=== PATIENT | female | born 1950 | race Caucasian/White ===

== ENCOUNTER → 2016-09-11 | Outpatient (CLI) | payer OTHER | END | disposition home or self-care (01) | LOC: LABWHC1 08:16 | PROVIDERS: ATTEND Psychiatry & Neurology Neurology | DX: G40.909 Epilepsy, unspecified, not intractable, without status epilepticus (principal) | CPT/HCPCS: 36415; 80185 ==

== ENCOUNTER → 2016-12-20 | Outpatient (CLI) | payer MEDICARE, OTHER ==
--- NOTE | 2016-12-21 16:50 | BD ---
EXAMINATION TYPE: MG DEXA axial skeleton. DATE OF EXAM: 12/20/2016 3:57 PM COMPARISON: NONE CLINICAL HISTORY: 66-year-old female screening for osteoporosis Height: 5 FT 2 1/4 IN Weight: 182 FRAX RISK QUESTIONS: Alcohol (3 or more units per day): NO Family History (Parent hip fracture): YES Glucocorticoids (More than 3mos): NO (Ex: prednisone, prednisolone, methylprednisolone, dexamethasone, and hydrocortisone). History of Fracture in Adulthood: YES Secondary Osteoporosis: 1. Type 1 Diabetes: NO 2. Hyperthyroidism: NO 3. Menopause before 45: NO 4. Malnutrition: NO 5. Chronic liver disease: NO Rheumatoid Arthritis: NO Current Tobacco Use: NO RISK FACTORS HISTORY OF: History of Wrist Fracture: RT WRIST ? When: 2006? Family History of Osteoporosis: YES Active: YES Postmenopausal woman: PART HYST AGE 33 MEDICATIONS: Additional Medications: LEVOTHYROXINE, LIPITOR, EPILEPTIC MEDS, VITAMINS, H2O PILL, Additional History: EXAM MEASUREMENTS: Bone mineral densitometry was performed using the [employer] System. Bone mineral density as measured about the Lumbar spine is: ----- L1-L4(G/cm2): 1.247 T Score Values are as follows: ----- L2: -0.3 ----- L3: 1.1 ----- L4: 1.8 ----- L1-L4: 0.6 PREV NOT DONE HERE Bone mineral density about the R hip (g/cm2): 0.896 Bone mineral density about the L hip (g/cm2): 0.849 T Score values are as follows: -----R Neck: -1.0 -----L Neck: -1.4 -----R Total: -0.2 -----L Total: -0.5 PREV NOT DONE HERE IMPRESSION: Osteopenia as indicated by T score values within the left hip. There is slightly increased risk of fracture and the patient may be considered for treatment. Re-Screen 2-5 years. NOTE: T-SCORE=SD OF THE YOUNG ADULT MEAN.
--- NOTE | 2016-12-22 08:29 | MM ---
Reason for exam: screening (asymptomatic). Last mammogram was performed 1 year and 3 months ago. History: Patient is postmenopausal. Physical Findings: A clinical breast exam by your physician is recommended on an annual basis and results should be correlated with mammographic findings. MG Screening Mammo w CAD Bilateral CC and MLO view(s) were taken. Prior study comparison: September 23, 2015, bilateral MG 3d screening mammo w/cad. July 22, 2013, bilateral digital screening mammo w/CAD. There are scattered fibroglandular densities. No significant changes when compared with prior studies. ASSESSMENT: Negative, BI-RAD 1 RECOMMENDATION: Routine screening mammogram of both breasts in 1 year.
== END | disposition home or self-care (01) ==
LOC: RADMAMWWP 15:12
PROVIDERS: ATTEND Family Medicine
DX: Z12.31 Encounter for screening mammogram for malignant neoplasm of breast (principal); M85.852 Other specified disorders of bone density and structure, left thigh
CPT/HCPCS: 77080; G0202

== ENCOUNTER → 2017-03-07 | Outpatient (CLI) | payer MEDICARE, OTHER | END | disposition home or self-care (01) | LOC: LABWHC1 09:15 | PROVIDERS: ATTEND Psychiatry & Neurology Neurology | DX: G40.909 Epilepsy, unspecified, not intractable, without status epilepticus (principal) | CPT/HCPCS: 36415; 80177 ==

== ENCOUNTER → 2017-03-20 | Outpatient (CLI) | payer MEDICARE, OTHER ==
[2017-03-20 10:39] LABS: Non-African American GFR(MDRD) 60 (>60 ml/min/1.73 sqM)
--- NOTE | 2017-03-20 13:27 | MR ---
EXAMINATION TYPE: MR lumbar spine wo/w con DATE OF EXAM: 03/20/2017 11:29 AM COMPARISON: NONE HISTORY: Abnormal gait CONTRAST: The patient was injected with 17 mL intravenous MultiHance gadolinium contrast. Multiplanar, MultiSpin echo imaging of the lumbar spine was performed. There is a transitional segme nt with partial lumbarization of S1 and rudimentary S1-S2 disc. L1-L2: Normal disc appearance without desiccation. No herniation, protrusion or disc bulging. No ca nal stenosis is present. Foramina are patent bilaterally. L2-L3: Normal disc appearance without desiccation. No herniation, protrusion or disc bulging. No ca nal stenosis is present. Foramina are patent bilaterally. L3-L4: There is borderline disc desiccation. No herniation, protrusion or disc bulging. No canal destiney nosis is present. Foramina are patent bilaterally. L4-L5: Mild disc desiccation noted. There is minimal left posterior disc bulge. Hypertrophy of the li gament flavum and facet joint arthropathy contribute to borderline central stenosis. Mild right-sided foraminal encroachment. L5-S1: There is evidence of moderate disc desiccation with posterior central disc bulge and annular t ear. Grade 1 anterolisthesis L5 on S1 of 1 mm. S1 hemangioma. No central stenosis disc herniation justice ntified. Mild right-sided foraminal encroachment. Lumbar segments are intact. No paraspinal masses are identified. Conus medullaris has a normal appe arance. IMPRESSION: 1. Degenerative disc disease greatest at L4-5 where there is borderline central stenosis identified.
== END | disposition home or self-care (01) ==
LOC: RADMRIMAIN 10:13
PROVIDERS: ATTEND Psychiatry & Neurology Neurology
DX: M48.06 Spinal stenosis, lumbar region (principal); M51.36 Other intervertebral disc degeneration, lumbar region; R26.9 Unspecified abnormalities of gait and mobility; Z13.89 Encounter for screening for other disorder
CPT/HCPCS: 82565; 72158; A9577

== ENCOUNTER → 2017-12-27 | Outpatient (CLI) | payer MEDICARE, OTHER ==
--- NOTE | 2017-12-27 15:31 | US ---
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 had prior rt renal biopsy--benign EXAM MEASUREMENTS: Right Kidney: 11.1 x 6.0 x 5.1 cm Left Kidney: 11.9 x 6.4 x 5.8 cm Right Kidney: some cortical lobulation, otherwise wnl Left Kidney: wnl Bladder: wnl Bilateral Jets seen: no There is no evidence for hydronephrosis at this point in time. No nephrolithiasis is seen. No juan s are identified. The urinary bladder is anechoic. IMPRESSION: No hydronephrosis or nephrolithiasis. No focal renal masses are appreciated.
== END | disposition home or self-care (01) ==
LOC: RADUSWWP 15:07
PROVIDERS: ATTEND Family Medicine
DX: Q61.8 Other cystic kidney diseases (principal)
CPT/HCPCS: 76770

== ENCOUNTER → 2018-02-01 | Outpatient (CLI) | payer MEDICARE, OTHER ==
--- NOTE | 2018-02-01 09:33 | CT ---
EXAMINATION TYPE: CT chest wo con DATE OF EXAM: 02/01/2018 COMPARISON: CT chest February 19, 2014 HISTORY: Shortness of breath, cough, lung nodule CT DLP: 408.4 mGycm. Automated Exposure Control for Dose Reduction was Utilized. TECHNIQUE: CT scan of the thorax is performed without IV contrast. FINDINGS: LUNGS: There is stable 4 mm nodule lateral inferior right upper lobe axial image 20. There is stable 8 x 6 mm nodule anterior left upper lobe axial image 18. There are 2 adjacent 5 and 4 mm nodules in t he lingula axial image 23 and 24 respectively redemonstrated which are stable. There is irregular 6 x 4 mm nodule anterior medial right midlung axial image 24 which is stable. There is stable 3 to 4 mm nodule left lower lobe superiorly and posteriorly axial image 25. There is stable or minimally more p rominent 5 mm nodule inferior and medial to this axial image 32. No new nodules are clearly evident. No suspicious consolidation or groundglass opacity is seen. No pleural effusion or pneumothorax is no jesse. MEDIASTINUM: Lack of IV contrast is noted to limit evaluation for mediastinal and especially hilar ad enopathy. There are no definitive greater than 1 cm noncalcified hilar or mediastinal lymph nodes. Th ere are some calcified subcentimeter right hilar and subcarinal lymph nodes. No cardiomegaly or per icardial effusion is seen. OTHER: There is S-shaped scoliosis with moderate multilevel spurring in the thoracic spine redemonstr ated. IMPRESSION: Scattered small nodules are stable presumed postinflammatory. No new nodules or masses ar e identified.
== END ==
LOC: RADCTMAIN 08:45
PROVIDERS: ATTEND Internal Medicine Pulmonary Disease
DX: R91.8 Other nonspecific abnormal finding of lung field (principal); R06.02 Shortness of breath; R05 Cough
CPT/HCPCS: 71250

== ENCOUNTER → 2018-02-12 | Outpatient (CLI) | payer MEDICARE, OTHER | END | disposition home or self-care (01) | LOC: LABWHC1 07:23 | PROVIDERS: ATTEND Psychiatry & Neurology Neurology | DX: G40.909 Epilepsy, unspecified, not intractable, without status epilepticus (principal) | CPT/HCPCS: 36415; 80177 ==

== ENCOUNTER → 2018-02-12 | Outpatient (CLI) | payer MEDICARE, OTHER ==
--- NOTE | 2018-02-13 11:16 | MM ---
Reason for exam: screening (asymptomatic). Last mammogram was performed 1 year and 2 months ago. History: Patient is postmenopausal. Physical Findings: A clinical breast exam by your physician is recommended on an annual basis and results should be correlated with mammographic findings. MG Screening Mammo w CAD Bilateral CC and MLO view(s) were taken. Prior study comparison: December 20, 2016, bilateral MG screening mammo w CAD. September 23, 2015, bilateral MG 3d screening mammo w/cad. There are scattered fibroglandular densities. There is no discrete abnormality. ASSESSMENT: Negative, BI-RAD 1 RECOMMENDATION: Routine screening mammogram of both breasts in 1 year.
== END | disposition home or self-care (01) ==
LOC: RADMAMWWP 08:49
PROVIDERS: ATTEND Family Medicine
DX: Z12.31 Encounter for screening mammogram for malignant neoplasm of breast (principal)
CPT/HCPCS: 77067

== ENCOUNTER 2018-07-12 08:51 | Day surgery (SDC) | payer MEDICARE, OTHER ==
[2018-07-10 13:00] VITALS: BMI 33.1
[~2018-07-12 08:51] MED LIST: LACTATED RINGERS 1,000 ML IV SCH; PROPOFOL 10 MG/ML 20 ML VIAL IV ONE
[2018-07-12 09:25] VITALS: RESP 18; TEMP 97.3
[2018-07-12] MEDS ORDERED: LIDOCAINE 1% 20 ML VIAL (10MG/ML) FOR IV START INTRADERMA ONE (09:29)
--- NOTE | 2018-07-12 10:20 | P.PCN ---
Date of Procedure: 07/12/18 Procedure(s) Performed: BRIEF HISTORY: Patient is a 67-year-old pleasant, white female scheduled for an elective colonoscopy as a part of evaluation of change in bowel habits. PROCEDURE PERFORMED: Colonoscopy with snare polypectomy. PREOPERATIVE DIAGNOSIS: Change in bowel habits. IV sedation per Anesthesia. PROCEDURE: After informed consent was obtained, the patient, was brought into the endoscopy unit. IV sedation was administered by Anesthesia under continuous monitoring. Digital rectal examination was normal. Initially the Olympus CF- 160 flexible video colonoscope was then inserted in the rectum, gradually advanced into the cecum without any difficulty. Careful examination was performed as the scope was gradually being withdrawn. Ileocecal valve and the appendiceal orifice were visualized and appeared normal. Prep was excellent. Mucosa of the cecum, ascending colon, transverse colon, descending colon, appeared normal. In the sigmoid colon at 35 cm from the anal was there was a 1.5 cm pedunculated polyp removed by snare polypectomy. Rest of the sigmoid colon, and rectum appeared normal. Retroflexion was performed in the rectum and small internal hemorrhoids were seen. The patient tolerated the procedure well. IMPRESSION: 1.5 cm pedunculated sigmoid colon polyp status post polypectomy Small internal hemorrhoids RECOMMENDATIONS: Findings of this examination were discussed with the patient as well as her family. She was advised to follow with the biopsy results. If the biopsy shows adenoma, she can have a repeat colonoscopy in 3 years.
[2018-07-12 11:07] VITALS: BP 129/81; PULSE 62
== END 2018-07-12 11:21 | disposition home or self-care (01) ==
LOC: ORWHC2ENDO 08:51
PROVIDERS: ATTEND Internal Medicine Gastroenterology
DX: D12.5 Benign neoplasm of sigmoid colon (principal); K64.8 Other hemorrhoids; I10 Essential (primary) hypertension; E78.5 Hyperlipidemia, unspecified; R56.9 Unspecified convulsions; Z79.890 Hormone replacement therapy; Z88.5 Allergy status to narcotic agent; Z79.899 Other long term (current) drug therapy
CPT/HCPCS: 88305; 45385; J2704

== ENCOUNTER → 2018-11-21 | Outpatient (CLI) | payer MEDICARE, OTHER ==
--- NOTE | 2018-11-21 13:06 | CT ---
EXAMINATION TYPE: CT sinus wo con DATE OF EXAM: 11/21/2018 COMPARISON: None HISTORY: Sinus problems x months. CT DLP: 624.[address] of the paranasal sinuses was performed in the axial and coronal planes. Bone and soft tissue settings are submitted. The paranasal sinuses demonstrate normal aeration and development. Mild mucosal thickening of the maxillary sinuses. Medial maxillary antrectomy noted bilaterally. Part ial ethmoidectomy noted. The osteal meatal units are patent bilaterally. The nasal septum is midline. No bony destructive changes are seen within the field of view. IMPRESSION: Postoperative changes of medial maxillary antrectomy and partial ethmoidectomy. Mild mucosal thickeni ng of the maxillary sinuses are noted. No air-fluid level seen.
== END | disposition home or self-care (01) ==
LOC: RADCTMAIN 12:38
PROVIDERS: ATTEND Otolaryngology
DX: J32.9 Chronic sinusitis, unspecified (principal); Z98.890 Other specified postprocedural states
CPT/HCPCS: 70486

== ENCOUNTER → 2019-01-06 | Outpatient (CLI) | payer MEDICARE, OTHER | LOC: LABWHC1 09:57 | PROVIDERS: ATTEND Psychiatry & Neurology Neurology | DX: G40.909 Epilepsy, unspecified, not intractable, without status epilepticus (principal) | CPT/HCPCS: 36415; 80177 ==

== ENCOUNTER → 2019-02-20 | Outpatient (CLI) | payer MEDICARE, OTHER ==
--- NOTE | 2019-02-21 10:52 | MM ---
Reason for exam: screening (asymptomatic). Last mammogram was performed 1 year ago. History: Patient is postmenopausal. Physical Findings: A clinical breast exam by your physician is recommended on an annual basis and results should be correlated with mammographic findings. MG 3D Screening Mammo W/Cad Bilateral CC and MLO view(s) were taken. Prior study comparison: February 12, 2018, bilateral MG screening mammo w CAD. December 20, 2016, bilateral MG screening mammo w CAD. The breast tissue is almost entirely fat. No significant changes when compared with prior studies. ASSESSMENT: Benign, BI-RAD 2 RECOMMENDATION: Routine screening mammogram of both breasts in 1 year.
== END | disposition home or self-care (01) ==
LOC: RADMAMWWP 13:33
PROVIDERS: ATTEND Family Medicine
DX: Z12.31 Encounter for screening mammogram for malignant neoplasm of breast (principal)
CPT/HCPCS: 77063; 77067

== ENCOUNTER → 2019-03-28 | Outpatient (CLI) | payer MEDICARE, OTHER ==
--- NOTE | 2019-03-28 16:35 | CT ---
EXAMINATION TYPE: CT chest wo con DATE OF EXAM: 03/28/2019 COMPARISON: 02/01/2018 and 02/19/2014 HISTORY: Dyspnea, Multiple lung nodules. CT DLP: 390.[address] of the chest was performed with lung and mediastinal window settings submitted. The la ck of contrast limits evaluation of the vascular, mediastinal and parenchymal structures including th e upper abdomen. LUNGS: The lungs are clear and free of infiltrate. No atelectasis. There are stable pulmonary nodules dating back to 02/19/2014. No new nodules seen. No pleural effusion. No CT evidence of interstitial lung disease. MEDIASTINUM/JESSICA: Thoracic aorta is of normal caliber with limited evaluation given lack of contrast . The heart is not enlarged. No evidence for mediastinal mass. No lymph nodes greater than 1cm. UPPER ABDOMEN: Stable splenic cyst. OTHER: No significant other abnormality. IMPRESSION: 1. There are stable pulmonary nodules dating back to 02/19/2014. No new nodules seen. No further foll ow-up is necessary.
== END | disposition home or self-care (01) ==
LOC: RADCTMAIN 12:21
PROVIDERS: ATTEND Internal Medicine Pulmonary Disease
DX: R91.8 Other nonspecific abnormal finding of lung field (principal)
CPT/HCPCS: 71250

== ENCOUNTER → 2019-10-13 | Outpatient (CLI) | payer MEDICARE, OTHER | END | disposition home or self-care (01) | LOC: LABWHC1 09:05 | PROVIDERS: ATTEND Psychiatry & Neurology Neurology | DX: G40.909 Epilepsy, unspecified, not intractable, without status epilepticus (principal) | CPT/HCPCS: 36415; 80177 ==

== ENCOUNTER → 2020-05-05 | Outpatient (CLI) | payer MEDICARE, OTHER ==
--- NOTE | 2020-05-06 11:08 | MM ---
Reason for exam: screening (asymptomatic). Last mammogram was performed 1 year and 2 months ago. History: Patient is postmenopausal. Physical Findings: A clinical breast exam by your physician is recommended on an annual basis and results should be correlated with mammographic findings. MG 3D Screening Mammo W/Cad Bilateral CC and MLO view(s) were taken. Prior study comparison: February 20, 2019, bilateral MG 3d screening mammo w/cad. February 12, 2018, bilateral MG screening mammo w CAD. There are scattered fibroglandular densities. There is no discrete abnormality. No significant changes when compared with prior studies. ASSESSMENT: Negative, BI-RAD 1 RECOMMENDATION: Routine screening mammogram of both breasts in 1 year.
== END | disposition home or self-care (01) ==
LOC: RADMAMWWP 12:05
PROVIDERS: ATTEND Family Medicine
DX: Z12.31 Encounter for screening mammogram for malignant neoplasm of breast (principal)
CPT/HCPCS: 77063; 77067

== ENCOUNTER 2020-10-11 14:18 | Emergency (ER) | payer MEDICARE, OTHER ==
[2020-10-11 14:23] VITALS: BP 152/84; PULSE 95; RESP 18; TEMP 98.3
[2020-10-11] MEDS ORDERED: TOPICAL SKIN ADHESIVE 1 EACH AMP TOPICAL ONE (15:44)
--- NOTE | 2020-10-11 15:50 | ED ---
Wound/Laceration HPI - General Chief Complaint: Wound/Laceration Stated Complaint: thumb lac Time Seen by Provider: 10/11/20 15:35 Source: patient Mode of arrival: ambulatory Limitations: no limitations - History of Present Illness Initial Comments: Patient is a 69-year-old female presenting to the emergency Department with complaints of a laceration to her right thumb. Patient states she was slicing vegetables yesterday and accidentally cut her thumb. This happened yesterday morning apparently 9 AM. Patient states today she was shopping and noticed that it opened back up and it was bleeding so she came into the ER for evaluation. She states her tetanus is up-to-date. She is not on blood thinners. Bleeding is controlled with a Band-Aid at this time. She has no further complaints. - Related Data Home Medications Medication Instructions Recorded Confirmed Atorvastatin Calcium [Lipitor] 80 mg PO HS 04/03/14 07/12/18 Levothyroxine Sodium [Synthroid] 25 mcg PO QAM 04/03/14 07/12/18 hydroCHLOROthiazide [Hydrodiuril] 25 mg PO DAILY 04/03/14 07/12/18 Alive-Multi Vit 1 each PO DAILY 07/10/18 07/12/18 Calcium Citrate/Vitamin D3 1 each PO HS 07/10/18 07/12/18 [Calcitrate + Vit D Caplet] Cholecalciferol [Vitamin D3] 1,000 unit PO HS 07/10/18 07/12/18 Docusate [Colace] 100 mg PO BID 07/10/18 07/12/18 Loratadine [Claritin] 10 mg PO DAILY 07/10/18 07/12/18 Magnesium Oxide [Fernández] 500 mg PO DAILY 07/10/18 07/12/18 Triamcinolone 0.1% Ointment 1 applic TOPICAL DAILY 07/10/18 07/12/18 [Kenalog 0.1% Ointment] Previous Rx's Medication Instructions Recorded levETIRAcetam [Keppra] 750 mg PO Q12HR #60 tab 09/21/16 Allergies Allergy/AdvReac Type Severity Reaction Status Date / Time tuberculin, purified protein Allergy Swelling Verified 10/11/20 14:22 deriva morphine AdvReac Nausea & Verified 10/11/20 14:22 Vomiting Review of Systems ROS Statement: Those systems with pertinent positive or pertinent negative responses have been documented in the HPI. ROS Other: All systems not noted in ROS Statement are negative. Past Medical History Past Medical History: Hyperlipidemia, Hypertension, Seizure Disorder, Thyroid Disorder Additional Past Medical History / Comment(s): IBS, last seizure 2 YEARS AGO, hypothyroid, 2000 Bae's palsey.-RESOLVED History of Any Multi-Drug Resistant Organisms: None Reported Past Surgical History: Adenoidectomy, Bladder Surgery, Hysterectomy, Tonsillectomy Additional Past Surgical History / Comment(s): R renal tumor benign biopsy, colonoscopy with polyp removed, bladder suspension, sinus surgery SX FOR SLEEP APNEA Past Anesthesia/Blood Transfusion Reactions: No Reported Reaction Past Psychological History: No Psychological Hx Reported Smoking Status: Never smoker Past Alcohol Use History: None Reported Past Drug Use History: None Reported - Past Family History Father History Unknown: Yes Family Medical History: No Reported History Mother Additional Family Medical History / Comment(s): Mother had heart disease. Sister(s) Family Medical History: Cancer Additional Family Medical History / Comment(s): LUNG General Exam - General Exam Comments Initial Comments: GENERAL: Patient is well-developed and well-nourished. Patient is nontoxic and in no acute distress. HEAD: Atraumatic, normocephalic. EYES: Pupils equal round and reactive to light, extraocular movements intact, sclera anicteric, conjunctiva are normal. Eyelids were unremarkable. ENT: Nares patent, oropharynx clear without exudates. Moist mucous membranes. NECK: Normal range of motion, supple without lymphadenopathy or JVD. LUNGS: Unlabored respirations. Breath sounds clear to auscultation bilaterally and equal. No wheezes rales or rhonchi. HEART: Regular rate and rhythm without murmurs, rubs or gallops. ABDOMEN: Soft, nontender, normoactive bowel sounds. No guarding, no rebound. No masses appreciated. : Deferred MUSCULOSKELETAL: Normal extremities with adequate strength and normal range of motion, no pitting or edema. No clubbing or cyanosis. NEUROLOGICAL: Patient is alert and oriented x 3. Normal speech, normal gait. PSYCH: Normal mood, normal affect. SKIN: Warm, Dry, normal turgor, no rashes. Patient has a superficial laceration to the lateral aspect of the distal right thumb, approximately 0.5 cm in length. No active bleeding. No nail involvement. Limitations: no limitations Course Vital Signs 10/11/20 14:19 Temperature 98.3 F Pulse Rate 95 Respiratory 18 Rate Blood Pressure 152/84 O2 Sat by Pulse 97 Oximetry Procedures - Laceration Laceration #1 Consent Obtained: verbal consent Indication: laceration Site: hand (Distal right thumb) Size (cm): 0 (0.5cm) Description: linear Depth: simple, single layer Additional Comments: Topical skin adhesive was applied over the wound as well as Steri-Strips. Medical Decision Making - Medical Decision Making Patient is a 69-year-old female here with a 0.5 cm laceration to the distal thumb, that happened yesterday at approximately 9 AM. No active bleeding, her tetanus is up-to-date. She states that it opened up while she was shopping today. The wound was cleaned, topical skin adhesive was applied as well as Steri-Strips. He will keep hand clean and dry. Skin adhesive will slowly come off after 5-6 days. Patient is stable for discharge. Patient is in agreement with this plan of care. Return parameters were discussed with the patient and they verbalized understanding. Case discussed with Dr. Guidry. Disposition Clinical Impression: Laceration of right thumb Disposition: HOME SELF-CARE Condition: Stable Instructions (If sedation given, give patient instructions): Skin Adhesive Care (ED) Additional Instructions: Please return to the Emergency Department if symptoms worsen or any other concerns. Keep hand clean and dry. Do not soak the thumb. Skin adhesive will slowly come off after 4-5 days. Is patient prescribed a controlled substance at d/c from ED?: No Referrals: Saundra Swan MD [Primary Care Provider] - 1-2 days
== END 2020-10-11 17:05 | disposition home or self-care (01) ==
LOC: EC 14:18
DX: S61.011A Laceration without foreign body of right thumb without damage to nail, initial encounter (principal); E78.5 Hyperlipidemia, unspecified; E03.9 Hypothyroidism, unspecified; I10 Essential (primary) hypertension; G40.909 Epilepsy, unspecified, not intractable, without status epilepticus; Z79.890 Hormone replacement therapy; Z79.899 Other long term (current) drug therapy; Z88.5 Allergy status to narcotic agent; Z88.8 Allergy status to other drugs, medicaments and biological substances; Z90.89 Acquired absence of other organs; Z90.710 Acquired absence of both cervix and uterus; W26.9XXA Contact with unspecified sharp object(s), initial encounter; Y93.G3 Activity, cooking and baking
CPT/HCPCS: 12001; 99282

== ENCOUNTER → 2020-11-08 | Outpatient (CLI) | payer MEDICARE, OTHER | END | disposition home or self-care (01) | LOC: LABWHC1 11:29 | PROVIDERS: ATTEND Psychiatry & Neurology Neurology | DX: G40.909 Epilepsy, unspecified, not intractable, without status epilepticus (principal) | CPT/HCPCS: 36415; 80177 ==

== ENCOUNTER → 2021-07-06 | Outpatient (CLI) | payer MEDICARE, OTHER ==
--- NOTE | 2021-07-08 11:36 | MM ---
Reason for exam: screening (asymptomatic). Last mammogram was performed 1 year and 2 months ago. History: Patient is postmenopausal. Physical Findings: A clinical breast exam by your physician is recommended on an annual basis and results should be correlated with mammographic findings. MG 3D Screening Mammo W/Cad Bilateral CC and MLO view(s) were taken. Prior study comparison: May 05, 2020, bilateral MG 3d screening mammo w/cad. February 20, 2019, bilateral MG 3d screening mammo w/cad. There are scattered fibroglandular densities. There is no discrete abnormality. ASSESSMENT: Negative, BI-RAD 1 RECOMMENDATION: Routine screening mammogram of both breasts in 1 year.
== END | disposition home or self-care (01) ==
LOC: RADMAMWWP 10:04
PROVIDERS: ATTEND Family Medicine
DX: Z12.31 Encounter for screening mammogram for malignant neoplasm of breast (principal); Z78.0 Asymptomatic menopausal state
CPT/HCPCS: 77063; 77067

== ENCOUNTER → 2021-07-22 | Outpatient (CLI) | payer MEDICARE, OTHER | END | disposition home or self-care (01) | LOC: LABWHC1 10:15 | PROVIDERS: ATTEND Psychiatry & Neurology Neurology | DX: G40.909 Epilepsy, unspecified, not intractable, without status epilepticus (principal) | CPT/HCPCS: 36415; 80177 ==

== ENCOUNTER → 2022-07-11 | Outpatient (CLI) | payer MEDICARE, OTHER ==
--- NOTE | 2022-07-11 14:21 | BD ---
EXAMINATION TYPE: Axial Bone Density DATE OF EXAM: 07/11/2022 COMPARISON: 2016 CLINICAL HISTORY: 71 years year old Female. ICD-10 CODE: M85.88 disorder of bone Height: 5'2 Weight: 176 FRAX RISK QUESTIONS: Family History (Parent hip fracture): y History of Fracture in Adulthood: y Secondary Osteoporosis: RISK FACTORS HISTORY OF: History of Wrist Fracture: not sure When: 2006 Family History of Osteoporosis: y Postmenopausal woman: y MEDICATIONS: Thyroid Medications: Which medication: Levothyroxine How Lon years Additional Medications: epilepsy, blood pressure, cholesterol, Additional History: EXAM MEASUREMENTS: Bone mineral densitometry was performed using the [employer]. Bone mineral density as measured about the Lumbar spine is: ----- L1-L4(G/cm2): 1.318 T Score Values are as follows: ----- L1: 0.2 ----- L2: 0.4 ----- L3: 2.2 ----- L4: 1.4 ----- L1-L4:1.2 Bone mineral density has: Increased 3.8% since study of: 12/20/2016 Bone mineral density about the R hip (g/cm2): 0.939 Bone mineral density about the L hip (g/cm2): 0.898 T Score values are as follows: -----R Neck: -0.7 -----L Neck: -1.1 -----R Total: -0.1 -----L Total: -0.2 Bone mineral density has: Increased 2.4% since study of: 12/20/2016 FRAX%s: The graph provided illustrates a 13.5% chance for a major osteoporotic fx and a1.4% chance f or the hips probability for fx in 10 years time. IMPRESSION: Osteopenia (T Score between -2.5 and -1). There is slightly increased risk of fracture and the patient may be considered for treatment. Re-Screen 2-5 years. NOTE: T-SCORE=SD OF THE YOUNG ADULT MEAN.
--- NOTE | 2022-07-12 08:32 | MM ---
Reason for Exam: Screening (asymptomatic). Last screening mammogram was performed 12 month(s) ago. Patient History: Menarche at age 12. First Full-Term at age 21. Right ovary removed at age 33. Hysterectomy at age 33. Postmenopausal. Risk Values: Tyra 5 year model risk: 1.7%. NCI Lifetime model risk: 5.0%. Prior Study Comparison: 02/20/2019 Bilateral Screening Mammogram, [facility]. 05/05/2020 Bilateral Screening Mammogram, [facility]. 07/06/2021 Bilateral Screening Mammogram, [facility]. Tissue Density: There are scattered fibroglandular densities. Findings: Analyzed By CAD. There is no suspicious new group of microcalcifications or new suspicious mass in either breast. Overall Assessment: Negative, BI-RAD 1 Management: Screening Mammogram of both breasts in 1 year. A clinical breast exam by your physician is recommended on an annual basis and results should be correlated with mammographic findings. Electronically signed and approved by: Delfin Ziegler M.D.
== END | disposition home or self-care (01) ==
LOC: RADMAMWWP 13:08
PROVIDERS: ATTEND Family Medicine
DX: Z12.31 Encounter for screening mammogram for malignant neoplasm of breast (principal); Z13.820 Encounter for screening for osteoporosis; M85.872 Other specified disorders of bone density and structure, left ankle and foot
CPT/HCPCS: 77063; 77067; 77080

== ENCOUNTER → 2023-07-12 | Outpatient (CLI) | payer MEDICARE, OTHER ==
--- NOTE | 2023-07-15 18:27 | MM ---
Reason for Exam: Screening (asymptomatic). Last screening mammogram was performed 12 month(s) ago. Patient History: Menarche at age 12. First Full-Term at age 21. Right ovary removed at age 33. Hysterectomy at age 33. Postmenopausal. Risk Values: Tyra 5 year model risk: 1.7%. NCI Lifetime model risk: 4.7%. Prior Study Comparison: 05/05/2020 Bilateral Screening Mammogram, [facility]. 07/06/2021 Bilateral Screening Mammogram, [facility]. 07/11/2022 Bilateral MG 3D screening mammo w/cad, [facility]. Tissue Density: There are scattered fibroglandular densities. Findings: Analyzed By CAD. Chronic nodularity in the left breast. There is no suspicious group of microcalcifications or new suspicious mass in either breast. Overall Assessment: Benign, BI-RAD 2 Management: Screening Mammogram of both breasts in 1 year. . Patient should continue monthly self-breast exams. A clinical breast exam by your physician is recommended on an annual basis. This exam should not preclude additional follow-up of suspicious palpable abnormalities. Note on Tyra scores and lifetime risk: 1. A Tyra score greater than 3% is considered moderate risk. If this is the case, consider specialist referral to assess eligibility for a risk reducing agent. 2. If overall lifetime risk for the development of breast cancer is 20% or higher, the patient may qualify for future screening with alternating mammogram and breast MRI. Electronically signed and approved by: Elton Thakur M.D. Radiologist
== END | disposition home or self-care (01) ==
LOC: RADMAMWWP 09:50
PROVIDERS: ATTEND Family Medicine
DX: Z12.31 Encounter for screening mammogram for malignant neoplasm of breast (principal); Z78.0 Asymptomatic menopausal state
CPT/HCPCS: 77063; 77067

== ENCOUNTER → 2024-06-10 | Outpatient (CLI) | payer MEDICARE, OTHER | END | disposition home or self-care (01) | LOC: LABWHC1 10:38 | PROVIDERS: ATTEND Psychiatry & Neurology Neurology | DX: G40.909 Epilepsy, unspecified, not intractable, without status epilepticus (principal) | CPT/HCPCS: 36415; 80177 ==

== ENCOUNTER 2024-07-08 14:43 | Emergency (ER) | payer MEDICARE, OTHER ==
[2024-07-08 14:51] LABS: Glucose,Whole Blood 119 mg/dL (70-110)
--- NOTE | 2024-07-08 15:13 | ED ---
General Adult HPI - General Chief complaint: Altered Mental Status Stated complaint: AMS Time Seen by Provider: 07/08/24 14:44 Source: patient, RN/MD, EMS, RN notes reviewed Mode of arrival: EMS Limitations: altered mental status - History of Present Illness Initial comments: Patient is a 73-year-old female present to the emergency department with concern for seizure. Patient has known seizure disorder. Patient had a seizure and did go to [facility]. Patient was still found to be postictal and transferred here. Patient reportedly did have a 4 second seizure in route by EMS. Patient is postictal at this time and does not provide much history. Patient has no complaints - Related Data Home Medications Medication Instructions Recorded Confirmed Atorvastatin Calcium [Lipitor] 80 mg PO HS 04/03/14 11/08/21 Levothyroxine Sodium [Synthroid] 25 mcg PO QAM 04/03/14 11/08/21 hydroCHLOROthiazide [Hydrodiuril] 25 mg PO DAILY 04/03/14 11/08/21 Alive-Multi Vit 1 each PO DAILY 07/10/18 11/08/21 Calcium Citrate/Vitamin D3 1 each PO HS 07/10/18 11/08/21 [Calcitrate + Vit D Caplet] Cholecalciferol [Vitamin D3] 1,000 unit PO HS 07/10/18 11/08/21 Docusate [Colace] 100 mg PO BID 07/10/18 11/08/21 Loratadine [Claritin] 10 mg PO DAILY 07/10/18 11/08/21 Magnesium Oxide [Fernández] 500 mg PO DAILY 07/10/18 11/08/21 Triamcinolone 0.1% Ointment 1 applic TOPICAL DAILY PRN 07/10/18 11/08/21 [Kenalog 0.1% Ointment] Apple Cider Vinegar Tab 2 tab PO HS 11/03/21 11/08/21 Aspirin [Freeborn Aspirin EC] 81 mg PO DAILY 11/03/21 11/08/21 Empagliflozin [Jardiance] 25 mg PO QAM 11/03/21 11/08/21 Famotidine [Pepcid] 40 mg PO HS 11/03/21 11/08/21 Fluticasone Nasal [place] [Flonase 1 spray EA NOSTRIL BID 11/03/21 11/08/21 Nasal [place]] Losartan Potassium 25 mg PO QAM 11/03/21 11/08/21 Losartan Potassium [Cozaar] 50 mg PO HS 11/03/21 11/08/21 Glucosamine/Chondr Voss A Sod [Osteo 1 each PO DAILY 11/04/21 11/08/21 Bi-Flex Caplet] Previous Rx's Medication Instructions Recorded levETIRAcetam [Keppra] 750 mg PO Q12HR #60 tab 09/21/16 Allergies Allergy/AdvReac Type Severity Reaction Status Date / Time adhesive tape Allergy red rash Verified 11/08/21 08:08 tuberculin, purified protein Allergy Swelling Verified 11/08/21 08:08 deriva morphine AdvReac Nausea & Verified 11/08/21 08:08 Vomiting Review of Systems ROS Statement: Those systems with pertinent positive or pertinent negative responses have been documented in the HPI. ROS Other: All systems not noted in ROS Statement are negative. Limitations: ROS unobtainable due to patients medical condition Past Medical History Past Medical History: Hyperlipidemia, Hypertension, Seizure Disorder, Thyroid Disorder Additional Past Medical History / Comment(s): IBS, last seizure 2 YEARS AGO, hypothyroid, 2000 Bae's palsey.-RESOLVED History of Any Multi-Drug Resistant Organisms: None Reported Past Surgical History: Adenoidectomy, Bladder Surgery, Hysterectomy, Tonsillectomy Additional Past Surgical History / Comment(s): R renal tumor benign biopsy, colonoscopy with polyp removed, bladder suspension, sinus surgery SX FOR SLEEP APNEA Past Anesthesia/Blood Transfusion Reactions: No Reported Reaction Past Psychological History: No Psychological Hx Reported Past Alcohol Use History: None Reported - Past Family History Father History Unknown: Yes Family Medical History: No Reported History Mother Additional Family Medical History / Comment(s): Mother had heart disease. Sister(s) Family Medical History: Cancer Additional Family Medical History / Comment(s): LUNG General Exam Limitations: altered mental status General appearance: alert, in no apparent distress Head exam: Present: normocephalic Eye exam: Present: normal appearance, PERRL, EOMI ENT exam: Present: normal oropharynx Neck exam: Present: normal inspection Respiratory exam: Present: normal lung sounds bilaterally Cardiovascular Exam: Present: regular rate, normal rhythm GI/Abdominal exam: Present: soft. Absent: tenderness Extremities exam: Present: normal inspection. Absent: pedal edema, calf tenderness Neurological exam: Present: alert, altered, CN II-XII intact. Absent: motor sensory deficit Psychiatric exam: Present: normal affect, normal mood Skin exam: Present: normal color Course Vital Signs 07/08/24 07/08/24 14:43 15:36 Temperature 98.6 F Pulse Rate 102 H 98 Respiratory 18 16 Rate Blood Pressure 141/75 113/64 O2 Sat by Pulse 95 97 Oximetry EKG Findings - EKG Results: EKG: interpreted by ERMD, sinus rhythm, normal axis, normal QRS, normal ST/T EKG shows: tachycardia Medical Decision Making - Medical Decision Making Was pt. sent in by a medical professional or institution (, PA, BEATER TENDER, urgent care, hospital, or half-way...) When possible be specific @ -Patient was transferred from [facility] Did you speak to anyone other than the patient for history (EMS, parent, family, police, friend...)? What history was obtained from this source @ -No Did you review nursing and triage notes (agree or disagree)? Why? @ -I reviewed and agree with nursing and triage notes Were old charts reviewed (outside hosp., previous admission, EMS record, old EKG, old radiological studies, urgent care reports/EKG's, half-way records)? Report findings @ -Chart reviewed from [facility] Differential Diagnosis (chest pain, altered mental status, abdominal pain women, abdominal pain men, vaginal bleeding, weakness, fever, dyspnea, syncope, headache, dizziness, GI bleed, back pain, seizure, CVA, palpatations, mental health, musculoskeletal)? @ -Differential Seizure: Recurrent seizure disorder, febrile seizure, alcohol withdrawal, stimulants, meningitis, encephalitis, intercranial hemorrhage, intracranial tumor, stroke, eclampsia, thyrotoxicosis, hypocalcemia, hyponatremia, hypernatremia, hypomagnesemia, psychogenic, this is not meant to be an all-inclusive list. EKG interpreted by me (3pts min.). @ -As above X-rays interpreted by me (1pt min.). @ -None done CT interpreted by me (1pt min.). @ -None done U/S interpreted by me (1pt. min.). @ -None done What testing was considered but not performed or refused? (CT, X-rays, U/S, labs)? Why? @ -Considered imaging however this was done at [facility], same with labs What meds were considered but not given or refused? Why? @ -None Did you discuss the management of the patient with other professionals (professionals i.e. , PA, BEATER TENDER, lab, RT, psych nurse, social media specialist, laborer road, teacher, payroll officer, patient case coordinator)? Give summary @ -Case was discussed with Dr. Marina who will admit covering Dr. Mulligan Was smoking cessation discussed for >3mins.? @ -No Was critical care preformed (if so, how long)? @ -No Were there social determinants of health that impacted care today? How? (Homelessness, low income, unemployed, alcoholism, drug addiction, transportation, low edu. Level, literacy, decrease access to med. care, skilled nursing, rehab)? @ -No Was there de-escalation of care discussed even if they declined (Discuss DNR or withdrawal of care, Hospice)? DNR status @ -No What co-morbidities impacted this encounter? (DM, HTN, Smoking, COPD, CAD, Cancer, CVA, ARF, Chemo, Hep., AIDS, mental health diagnosis, sleep apnea, morbid obesity)? @ -Patient has history of seizures Was patient admitted / discharged? Hospital course, mention meds given and route, prescriptions, significant lab abnormalities, going to OR and other pertinent info. @ -Patient presents postictal following second seizure. Patient will be admitted with neuro consult. Admission orders written. Undiagnosed new problem with uncertain prognosis? @ -No Drug Therapy requiring intensive monitoring for toxicity (Heparin, Nitro, Insulin, Cardizem)? @ -No Were any procedures done? @ -No Diagnosis/symptom? @ -Seizure Acute, or Chronic, or Acute on Chronic? @ -Acute Uncomplicated (without systemic symptoms) or Complicated (systemic symptoms)? @ -Default Side effects of treatment? @ -No Exacerbation, Progression, or Severe Exacerbation? @ -No Poses a threat to life or bodily function? How? (Chest pain, [place], [place], pneumonia, PE, COPD, DKA, ARF, appy, cholecystitis, CVA, Diverticulitis, Homicidal, Suicidal, threat to staff... and all critical care pts) @ -Threat to neurological function - Lab Data Lab Results 07/08/24 Range/Units 14:49 POC Glucose (mg/dL) 119 H (70-110) mg/dL POC Glu [place] ID Sunil Barragan Disposition Clinical Impression: Seizure Disposition: ADMITTED IP TO THIS HOSP Is patient prescribed a controlled substance at d/c from ED?: No Referrals: Saundra Swan MD [Primary Care Provider] - 1-2 days Time of Disposition: 16:35
[2024-07-08] MEDS: levETIRAcetam IV 500 MG/5 ML VIAL IVP SCH (15:16)
[2024-07-08 16:57] VITALS: TEMP 98
[2024-07-08] MEDS ORDERED: NALOXONE 0.4 MG/ML 1 ML VIAL IV PRN (17:43)
[2024-07-08] MEDS: LORazepam 2 MG/ML INJ IV STA (18:27)
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
[2024-07-08] MEDS: levETIRAcetam IV 500 MG/5 ML VIAL IVP STA (19:18)
[2024-07-08 19:30] VITALS: BP 118/69; PULSE 94; RESP 14
[2024-07-09] MEDS ORDERED: levETIRAcetam IV 500 MG/5 ML VIAL IVP SCH (09:00)
== END 2024-07-08 19:44 | disposition other institution (70) ==
LOC: EC 14:43 → 6NMEDSUR 17:44 → UNDOADMOB 17:44 → EC 19:44
DX: R56.9 Unspecified convulsions (principal); Z86.69 Personal history of other diseases of the nervous system and sense organs; Z88.5 Allergy status to narcotic agent; Z91.09 Other allergy status, other than to drugs and biological substances; Z88.8 Allergy status to other drugs, medicaments and biological substances
CPT/HCPCS: 99285; 96374; 96375; 96376; 36415; 93005; J2060; J1953

== ENCOUNTER → 2024-07-18 | Outpatient (CLI) | payer MEDICARE, OTHER ==
[2024-07-18 15:22] LABS: Appearance,Urine Clear (Clear); Bilirubin,Urine Negative (Negative); Blood,Urine Negative (Negative); Color,Urine Yellow (Yellow); Ketones,Urine Negative (Negative); Nitrite,Urine Negative (Negative); PH, Urine 5.5; Specific Gravity,Urine 1.022 (1.001-1.030); Urobilinogen,Urine 0.2 E.U./DL
[2024-07-18 15:27] LABS: Bacteria,Urine None Seen (None Seen)
[2024-07-18 19:31] LABS: Urine Alcohol Negative (Negative); Urine Barbiturate Positive (Negative); Urine Cocaine Negative (Negative); Urine Methadone Negative (Negative); Urine Opiates Negative (Negative); Urine Phencyclidine Negative (Negative)
== END | disposition home or self-care (01) ==
LOC: LABWHC1 10:36
PROVIDERS: ATTEND Psychiatry & Neurology Neurology
DX: E11.65 Type 2 diabetes mellitus with hyperglycemia (principal); G40.919 Epilepsy, unspecified, intractable, without status epilepticus
CPT/HCPCS: 36415; 80177; 80306; 81001

== ENCOUNTER → 2024-11-06 | Outpatient (CLI) | payer MEDICARE, OTHER ==
--- NOTE | 2024-11-06 13:39 | CT ---
EXAMINATION TYPE: CT chest wo con DATE OF EXAM: 11/06/2024 COMPARISON: CT chest dated 03/28/2019 CLINICAL INDICATION: Female, 73 years old with history of R91.8 MULTIPLE NODULES OF LUNG; PHH, MULTIP LE NODULES OF LUNG TECHNIQUE: CT scan of the thorax is performed without IV contrast. CT DLP: 417.[address] CTDI: mGy Automated exposure control for dose reduction was used. FINDINGS: The 4 mm nodule in the right upper lobe, the 5 mm nodule in the right upper lobe, a 6 mm nodule in th e right upper lobe and the 4 mm nodule in the right lower lobe are all stable in size. There are a fe w additional sub-3 mm nodules which are also stable. There is no new or suspicious lung mass or nodul e. The great vessels of the chest are normal and is no mediastinal, hilar or axillary adenopathy. Limited scanning through the upper abdomen reveals no gross abnormality. There are no focal osseous lesions. IMPRESSION: 1. Multiple stable pulmonary nodules. There is no new or suspicious nodule. 2. No acute cardiopulmonary disease. 3. If this is a high-risk patient, then routine low-dose CT thorax screening is recommended at year ly intervals. [facility], Workstation: [id number] 11/06/2024 1:36 PM
== END | disposition home or self-care (01) ==
LOC: RADCTMAIN 12:56
PROVIDERS: ATTEND Internal Medicine Pulmonary Disease
DX: R91.8 Other nonspecific abnormal finding of lung field (principal); G47.30 Sleep apnea, unspecified; E66.9 Obesity, unspecified; I10 Essential (primary) hypertension; M19.90 Unspecified osteoarthritis, unspecified site; R56.9 Unspecified convulsions
CPT/HCPCS: 71250

== ENCOUNTER → 2024-12-04 | Outpatient (CLI) | payer MEDICARE, OTHER ==
--- NOTE | 2024-12-04 14:52 | BD ---
EXAMINATION TYPE: Axial Bone Density DATE OF EXAM: 12/04/2024 CLINICAL HISTORY: 74 years old Female. ICD-10 CODE: Z78.0 POST RENE , Additional History: Height: 61.7 Weight: 178 FRAX RISK QUESTIONS: Family History (Parent hip fracture): yes History of Fracture in Adulthood: yes Secondary Osteoporosis: RISK FACTORS HISTORY OF: History of Wrist Fracture: unknown When: 2006 MEDICATIONS: Thyroid Medications: Which medication: Levothyroxine How Long: about 8 years EXAM MEASUREMENTS: Bone mineral densitometry was performed using the [employer]. Bone mineral density as measured about the Lumbar spine is: ----- L1-L4(G/cm2): 1.373 T Score Values are as follows: ----- L1: 0.6 ----- L2: 1.6 ----- L3: 1.5 ----- L4: 2.4 ----- L1-L4: 1.6 Z Score Values are as follows: ----- L1: 1.8 ----- L2: 2.8 ----- L3: 2.7 ----- L4: 3.6 ----- L1-L4: 2.8 Bone mineral density has: Increased 4.2% since study of: 07.11.22 Bone mineral density about the R hip (g/cm2): 0.965 Bone mineral density about the L hip (g/cm2): 0.995 T Score values are as follows: -----R Neck: -0.9 -----L Neck: -1.0 -----R Total: -0.3 -----L Total: -0.1 Z Score values are as follows: -----R Neck: 0.6 -----L Neck: 0.5 -----R Total: 0.9 -----L Total: 1.1 Bone mineral density has: Decreased -0.7% since study of: 07-11-22 FRAX%s: The graph provided illustrates a 13.8% chance for a major osteoporotic fx and a 1.6% chance f or the hips probability for fx in 10 years time. IMPRESSION: Normal (Values between +1 and -1 indicate normal bone mass). Consider repeating this study in 5 year s or sooner if there is some new clinical indication. NOTE: T-SCORE=SD OF THE YOUNG ADULT MEAN. [facility], , 12/04/2024 2:49 PM
--- NOTE | 2024-12-04 15:07 | MM ---
Reason for Exam: Screening (asymptomatic). Last mammogram was performed 1 year(s) and 5 month(s) ago. Patient History: Menarche at age 12. First Full-Term at age 21. Right ovary removed at age 33. Hysterectomy at age 33. Postmenopausal. Risk Values: Tyra 5 year model risk: 1.7%. NCI Lifetime model risk: 4.3%. Prior Study Comparison: 07/06/2021 Bilateral Screening Mammogram, [facility]. 07/11/2022 Bilateral MG 3D screening mammo w/cad, [facility]. 07/12/2023 Bilateral MG 3D screening mammo w/cad, [facility]. Tissue Density: There are scattered areas of fibroglandular density. Findings: Analyzed By CAD. There is no suspicious group of microcalcifications or new suspicious mass in either breast. Overall Assessment: Negative, BI-RAD 1 Management: Screening Mammogram of both breasts in 1 year. . Patient should continue monthly self-breast exams. A clinical breast exam by your physician is recommended on an annual basis. This exam should not preclude additional follow-up of suspicious palpable abnormalities. Note on Tyra scores and lifetime risk: 1. A Tyra score greater than 3% is considered moderate risk. If this is the case, consider specialist referral to assess eligibility for a risk reducing agent. 2. If overall lifetime risk for the development of breast cancer is 20% or higher, the patient may qualify for future screening with alternating mammogram and breast MRI. [facility], , 12/04/2024 3:04 PM. Electronically signed and approved by: Delfin Ziegler M.D.
== END | disposition home or self-care (01) ==
LOC: RADBDWWP 13:51
PROVIDERS: ATTEND Family Medicine
DX: Z12.31 Encounter for screening mammogram for malignant neoplasm of breast (principal); R92.323 Mammographic fibroglandular density, bilateral breasts; M85.852 Other specified disorders of bone density and structure, left thigh; Z78.0 Asymptomatic menopausal state
CPT/HCPCS: 77063; 77067; 77080